=== PATIENT | female | born 1995 ===

== ENCOUNTER 2022-07-11 05:53 | Day surgery (SDC) | payer BC ==
[2022-07-09 12:48] VITALS: BMI 33.4
[2022-07-11] MEDS ORDERED: Ketorolac Tromethamine 30 MG/ML VIAL ONE (06:38)
[2022-07-11] MEDS ORDERED: Ondansetron PF 4 MG/2 ML Vial ONE ×2 (06:38→11:24)
[2022-07-11] MEDS ORDERED: Rocuronium Bromide 10 MG/ML (10ML VIAL) ONE (06:38)
[2022-07-11] MEDS ORDERED: PROPOFOL 20 ML ONE (06:38)
[2022-07-11] MEDS ORDERED: Lidocaine 1% PF 5 ML VIAL ONE (06:38)
[2022-07-11] MEDS ORDERED: Dexamethasone 20 MG/5 ML VIAL ONE ×2 (06:38→10:50)
[2022-07-11] MEDS ORDERED: Fentanyl 100 MCG/2 ML VIAL ONE (06:38)
[2022-07-11] MEDS ORDERED: Succinylcholine 200 MG/10 ml SYRINGE FS ONE (06:38)
[2022-07-11] MEDS ORDERED: Bupivacaine PF 0.5% 30 ML VIAL ONE (07:00)
[2022-07-11] MEDS ORDERED: EPINEPHrine 1 MG/ML AMP ONE (07:00)
[2022-07-11] MEDS ORDERED: Clindamycin/D5W 600 mg/50 ml Premix Bag ONE (07:16)
[2022-07-11 07:47] LABS: BHCG - Serum Negative (NEGATIVE); Pregs Control Background? CLEAR/WHITE (CLR/WHITE); Pregs Control Bar Appear? YES (CONTROL BAR)
[2022-07-11] MEDS ORDERED: HYDROcodone/Acetaminophen 5/325 mg Tablet PO PRN (08:37)
[2022-07-11] MEDS ORDERED: Acetaminophen 325 MG TAB PO PRN (08:37)
[2022-07-11] MEDS ORDERED: ePHEDrine Sulfate 50 MG/10 ML VIAL ONE (10:41)
[2022-07-11] MEDS ORDERED: Glycopyrrolate 0.2 MG/ML 5 ML SYRINGE ONE (10:43)
== END 2022-07-11 10:20 | disposition home or self-care (01) ==
LOC: CSHSDC 05:53
PROVIDERS: ATTEND Surgery
PROC: 0WQF0ZZ Repair Abdominal Wall, Open Approach (ICD-10-PCS; principal; 2022-07-11)
DX: K42.0 Umbilical hernia with obstruction, without gangrene (principal); L72.0 Epidermal cyst; N80.C2 Endometriosis of the umbilicus; L08.82 Omphalitis not of newborn; F41.1 Generalized anxiety disorder; Z79.899 Other long term (current) drug therapy; Z88.0 Allergy status to penicillin; Z88.1 Allergy status to other antibiotic agents; Z88.8 Allergy status to other drugs, medicaments and biological substances
CPT/HCPCS: 36415; 84703; 88305; 88341; 88342; J0171; J1100; J1885; J2405; J2704; J3010; J3490; S0020